=== PATIENT | female | born 1980 ===

== ENCOUNTER 2023-08-19 16:31 | Emergency (ER) | payer BC, SELFPAY ==
--- NOTE | 2023-08-19 16:36 | CRLHL7_ITS ---
For Patients: As a result of the Century Cures Act, medical imaging exams and procedure reports are released immediately into your electronic medical record. You may view this report before your referring provider. If you have questions, please contact your health care provider. INDICATION: Trauma. TECHNIQUE: Left elbow radiographs, 3 views. COMPARISON: None. FINDINGS: Acute comminuted displaced fracture of the radial neck, with a small joint effusion. There may be cortical regularity of the olecranon as well, suggestive of a minimally displaced fracture. No significant soft tissue edema or radiopaque foreign bodies. IMPRESSION: Findings compatible with and acute markedly comminuted fracture of the left radial neck with a small joint effusion. There is suspicion of a subtle, minimally displaced fracture of the olecranon as well. Dictated by Ugo Tena MD @ 08/19/2023 6:13:12 PM (Electronically Signed)
[2023-08-19 16:41] VITALS: BP 122/82; PULSE 74; RESP 22; TEMP 35.8; O2SAT 98
[2023-08-19] MEDS: ONDANSETRON ODT 4 MG TAB PO (16:51)
[2023-08-19] MEDS: OXYCODONE 5 MG TABLET PO (16:51)
--- NOTE | 2023-08-19 16:51 | ED_ITS ---
HPI - Extremity Injury (Upper) General Date Seen: 08/19/23 Chief Complaint: Extremity Pain/Injury, Upper Stated Complaint: left arm fell might be broken Time Seen by Provider: 08/19/23 16:39 Source: patient Mode of arrival: ambulatory Limitations: no limitations History of Present Illness HPI narrative: Patient is a 42 female presenting for left elbow pain. She states shortly prior to arrival she tripped over her feet states she landed on her knees and left elbow. She states she heard a crack and was immediately in severe pain to the left elbow. Denies ever hurting this elbow before. States she has pain to the elbow when she moves her fingers but denies any numbness at this time. Does states her right knee hurts mildly but just over the abrasions that occurred and she has been to walk on it without issue. Denies shoulder pain. States she knows for a fact that she did not hit her head. Related Data Home Medications Medication Instructions Recorded Confirmed dextroamphetamine-amphetamine 10 1 tab PO BID 08/19/23 08/19/23 mg tablet dextroamphetamine-amphetamine 20 0.5 tab PO BID 08/19/23 08/19/23 mg tablet Allergies Allergy/AdvReac Type Severity Reaction Status Date / Time No Known Drug Allergies Allergy Verified 08/19/23 16:40 Review of Systems Narrative: Negative unless stated in HPI PFSH PFSH Social History Smoking Status: Never smoker Do you use any of these nicotine containing products: None Second hand tobacco smoke exposure: No How often do you have a drink containing alcohol: never How often do you have six or more drinks on one occasion: Never AUDIT-C Alcohol total score: 0 Non-prescribed substance use: denies use service: No Exam Narrative: Exam Narrative: Const: Well-nourished, Well-developed, in moderate distress Eyes: PERRL, no conjunctival injection, and symmetrical lids HENT: Atraumatic external nose and ears. Moist mucous membranes. Neck: Symmetric, trachea midline, No thyromegaly. CVS: RRR, No murmurs or gallops. Peripheral pulses 2+ and equal in all extremities RESP: Unlabored respiratory effort. Clear to auscultation bilaterally. GI: Nontender/Nondistended, No rebound or guarding. MSK: Tenderness to palpation of left elbow, no tenderness noted anywhere else. Skin: Warm, Dry. No rashes or lesions. Neuro: Normal Muscle tone, No focal neurological deficits. Psych: Awake, Alert, & Oriented x3. Appropriate mood and affect. Const: Vital Signs, click to edit/add: Vital Signs - 24 hr 08/19/23 16:41 Temperature 96.5 F L Pulse Rate [Pulse Oximeter] 74 Respiratory Rate 22 Blood Pressure [Ri ght Upper Arm] 122/82 Pulse Oximetry 98 Oxygen Delivery Me thod Room Air Course Vital Signs Vital signs: Initial Vital Signs Temperature 96.5 F L 08/19/23 16:41 Temperature Source Temporal Artery Scan 08/19/23 16:41 Pulse Rate 74 08/19/23 16:41 Respiratory Rate 22 08/19/23 16:41 Blood Pressure 122/82 08/19/23 16:41 Blood Pressure Mean 95 08/19/23 16:41 Blood Pressure Position Sitting 08/19/23 16:41 Pulse Oximetry 98 08/19/23 16:41 Oxygen Delivery Method Room Air 08/19/23 16:41 Vital Signs Temperature 96.5 F L 08/19/23 16:41 Pulse Rate 74 08/19/23 16:41 Respiratory Rate 22 08/19/23 16:41 Blood Pressure 122/82 08/19/23 16:41 Pulse Oximetry 98 08/19/23 16:41 Oxygen Delivery Method Room Air 08/19/23 16:41 Temperature 96.5 F L 08/19/23 16:41 Pulse Rate 74 08/19/23 16:41 Respiratory Rate 22 08/19/23 16:41 Blood Pressure 122/82 08/19/23 16:41 Pulse Oximetry 98 08/19/23 16:41 Oxygen Delivery Method Room Air 08/19/23 16:41 Medications Administered Medications: Discontinued Medications Generic Name Dose Route Start Last Admin Trade Name Freq PRN Reason Stop Dose Admin Ondansetron HCl 4 mg 08/19/23 16:39 08/19/23 16:51 Ondansetron Odt 4 Mg Tab PO 08/19/23 16:40 4 mg ONCE ONE Administration Oxycodone HCl 5 mg 08/19/23 16:39 08/19/23 16:51 Oxycodone 5 Mg Tablet PO 08/19/23 16:40 5 mg ONCE ONE Administration MDM - Extremity Injury (Upper) MDM Narrative Medical decision making narrative: Patient is a 42-year-old female presenting for left elbow pain. Most of the tenderness was to the left elbow and on digits mild pain she was and it was difficult to say if she had any wrist or shoulder pain. Patient appeared diaphoretic and felt like she was going to pass out because the pain that she was quickly brought back to a huynh bed. She was given oral oxycodone and Zofran. X-rays of the left elbow, wrist, forearm were ordered. They were able to do the elbow x-rays but due to her level of pain they were unable to get the wrist and forearm x-rays. This seems reasonable at this time considering all of her pain appears to to now be at the elbow after she received pain medicine. X- rays returned showing the radial head fracture and a possible fracture of the olecranon. Patient is placed in a long-arm splint and a arm sling. She tolerated the procedure well. She will be discharged with Toradol, Zofran, oxycodone through [facility]. She continues to be neurovascular intact. She is scheduled for an outpatient orthopedics appointment. She is agreeable to this plan. Imaging Data Elbow x-ray: Radiologist's impression: Findings compatible with and acute markedly comminuted fracture of the left radial neck with a small joint effusion. There is suspicion of a subtle, minimally displaced fracture of the olecranon as well. Dictated by Ugo Tena MD @ 08/19/2023 6:13:12 PM Discharge Plan Discharge Clinical Impression: Elbow fracture, left Qualifiers: Encounter type: initial encounter Fracture type: closed Qualified Code(s): S42.402A - Unspecified fracture of lower end of left humerus, initial encounter for closed fracture Patient Disposition: Home, Self-Care Condition: Improved Instructions: Elbow Fracture (DC) Additional Instructions: Follow-up with orthopedics about your elbow fracture. ([phone]). Do not use ibuprofen or naproxen at the same time your taking the Toradol. No showering your left arm unless your able to cover the splint with a plastic bag. Return to emergency department for any new or worsening symptoms Prescriptions: No Action dextroamphetamine-amphetamine 10 mg tablet 1 tab PO BID dextroamphetamine-amphetamine 20 mg tablet 0.5 tab PO BID Follow Up/Referrals: Asia Bruno MD [Primary Care Provider] - Stand Alone Forms: SurgiCount Medical Info Instructions
== END 2023-08-19 18:41 | disposition home or self-care (01) ==
PROVIDERS: Emergency Provider Student in an Organized Health Care Education/Training Program; PCP Family Medicine
DX: S42.402A Unspecified fracture of lower end of left humerus, initial encounter for closed fracture (principal); W01.0XXA Fall on same level from slipping, tripping and stumbling without subsequent striking against object, initial encounter
CPT/HCPCS: 29105; 73080; 99282; 99283; A9270

== ENCOUNTER 2023-08-27 10:09 | Outpatient (CLI) | payer BC, SELFPAY ==
--- NOTE | 2023-08-27 10:00 | CRLHL7_ITS ---
For Patients: As a result of the Century Cures Act, medical imaging exams and procedure reports are released immediately into your electronic medical record. You may view this report before your referring provider. If you have questions, please contact your health care provider. Indication: FRACTURE Technique: Noncontrast CT left elbow Please note that all CT scans at this facility use dose modulation, iterative reconstruction, and/or weight-based dosing when appropriate to reduce radiation dose to as low as reasonably achievable. Comparison: Plain films 08/19/2023 Findings: There is a comminuted and displaced fracture of the radial neck. Fracture does not extend to the joint space. Angulation of the radial head noted, however, related to the fractures such that there is widening between the anterior aspect of the radial head and the capitellum. Chip fracture at the coronoid process noted. There is also a small fracture deformity adjacent to the medial humeral epicondyle. Joint effusion is present with displacement of the anterior and posterior fat pads. Subcutaneous edema noted. Impression: Displaced and comminuted radial neck fracture with mild angulation of the radial head such that there is widening at the radial capitellar joint along with a small intra-articular loose body. Additional fractures at the coronoid process and medial humeral epicondyle. Please note that all CT scans at this facility use dose modulation, iterative reconstruction, and/or weight-based dosing when appropriate to reduce radiation dose to as low as reasonably achievable. Dictated by Jaime Hurd MD @ 08/27/2023 11:19:01 AM (Electronically Signed)
== END 2023-08-27 10:10 | disposition home or self-care (01) ==
LOC: CT 10:10
PROVIDERS: PCP Physician Assistant Medical; Visit Provider Orthopaedic Surgery Sports Medicine
DX: S42.402A Unspecified fracture of lower end of left humerus, initial encounter for closed fracture (principal)
CPT/HCPCS: 73200

== ENCOUNTER 2023-08-30 11:18 | Day surgery (SDC) | payer BC, SELFPAY ==
[2023-08-30] MEDS: LACTATED RINGERS 1000 ML 1,000 ML 100 ML IV (11:10)
[2023-08-30 11:38] VITALS: BMI 34.8
[2023-08-30 11:54] LABS: Ur HCG Qualitative* Negative (Negative)
[2023-08-30 11:57] VITALS: BP 119/76; PULSE 79; RESP 18; TEMP 36.3; O2SAT 95
[2023-08-30] MEDS: SODIUM CHLORIDE 0.9 % (FLUSH) 10 ML SYRINGE IVF (12:06)
[2023-08-30 13:03] VITALS: BP 94/70; PULSE 77; RESP 18; O2SAT 98
[2023-08-30] MEDS: MIDAZOLAM HCL 1 MG/ML inj IVP (13:05)
[2023-08-30] MEDS: fentaNYL 100 MCG/2 ML inj IVP (13:05)
--- NOTE | 2023-08-30 13:06 | SUR.PREOP ---
TIME?OUT:?1305 PT/kristel duckworth RN/lauren moreno MDA?VERIFICATION?OF?SURGICAL?SITE,?PROCEDURE,?AND?CONSENT OBTAINED?PRIOR?TO?INVASIVE?PROCEDURE.
[2023-08-30 13:10] VITALS: BP 119/71; PULSE 77; RESP 18; O2SAT 96
--- NOTE | 2023-08-30 13:16 | W.PM.H&PU ---
History & Physical Update History & Physical Update H&P Reviewed and patient assessed: No changes noted
--- NOTE | 2023-08-30 13:30 | CRLHL7_ITS ---
For Patients: As a result of the Century Cures Act, medical imaging exams and procedure reports are released immediately into your electronic medical record. You may view this report before your referring provider. If you have questions, please contact your health care provider. INDICATION: Open reduction/internal fixation of the left elbow/radial head. TECHNIQUE: Fluoroscopically guided open reduction and internal fixation of the left elbow. FINDINGS: Four spot images of the left elbow were performed intraoperatively. Postsurgical change from open reduction and internal fixation across the left proximal radius. 22.4 seconds fluoroscopy time utilized. IMPRESSION: 22.4 seconds fluoroscopy time utilized intraoperatively. Dictated by Giovanny Mullins MD @ 08/30/2023 6:18:10 PM (Electronically Signed)
--- NOTE | 2023-08-30 13:30 | P.NB_ITS ---
Nerve Block Nerve Block Time Seen by Provider: 13:10 Date Seen: 08/30/23 Type of block requested by surgeon for post-operative analgesia: axillary Side: left Time out performed: Yes Verification of patient name: Yes Verification of date of : Yes Site marking: site marked Name of person performing procedure: Rashaad Continuous monitoring Was continuous monitoring of O2 sat, B/P, nuclear monitoring technician, recorded every 15 minutes?: Yes Procedure Checklist: sterile prep, needles and gloves Ultrasound guided. Images saved: Yes Medications given in 5ml increments after negative aspiration: Ropivicaine %: 0.5 mL: 30 Needle gauge: 22 Patient tolerated procedure well: Yes Additional comments: Needle noted adjacent to nerve Block Charges Block Charge (with Pro Fee): Brachial Plexus Use of Ultrasound Machine for Block: Yes- US Guidance/pain block
--- NOTE | 2023-08-30 13:31 | W.ANESCHARGE ---
Anesthesia Charges Start Date/Time Anesthesia Start Date: 08/30/23 Anesthesia Start Time: 13:24 Stop Date/Time Anesthesia Stop Date: 08/30/23 Anesthesia Stop Time: 15:59
[2023-08-30] MEDS: CEFAZOLIN 2 GM in 0.9 % SODIUM CHLORIDE Mini-bag 100 ML IVPB (13:42)
--- NOTE | 2023-08-30 15:35 | PM.ORPRC ---
Procedure Note Date of procedure: 08/30/23 Procedure: PREOPERATIVE DIAGNOSES: 1. Left radial neck fracture, displaced, comminuted, intra-articular extension, acute, closed 2. Left coronoid fracture, mildly displaced 3. Left distal humerus medial epicondylar avulsion fracture POSTOPERATIVE DIAGNOSES: 1. Left radial head/neck fracture, displaced, comminuted, intra-articular extension, acute, closed 2. Left coronoid fracture, mildly displaced 3. Left distal humerus medial epicondylar avulsion fracture NAME OF OPERATION: 1. Left radial head/neck open reduction with internal fixation 2. Closed treatment of a left coronoid fracture 3. Closed treatment of a left distal humerus medial epicondylar avulsion fracture 4. [id number] - intraoperative fluoroscopy up to 1 hour. SURGEON: Ayo Wagner MD CUTLET MAKER PORK: Yao De La O PA-C - Of note, an business banking sales assistant was critical for this case to aide in patient positioning, limb manipulation, tissue retraction, closure, and splinting. ANESTHESIA: Regional block plus MAC anesthetic IMPLANTS: Acumed radial head plate with multiple locking and a single nonlocking screw. TOURNIQUET: 97 minutes at 230 torr INDICATIONS: The patient is a pleasant, 42-year-old female who sustained a left radial head/neck fracture after a fall from a standing height. They had difficulty with use of the extremity and deformity as well as a mechanical block to range of motion. Workup included xrays which revealed an unstable, displaced, comminuted fracture. A CT scan was obtained and confirmed the comminuted fracture pattern but also intra-articular extension. There is also a small fracture of the coronoid process and the medial humeral epicondyle Given these findings, surgery was recommended to stablize the fracture. FINDINGS: Closed, comminuted proximal radial head/neck fracture. The radial head was primarily 1 fragment, but there is tremendous comminution through the radial neck fracture component. We also did appreciate the intra-articular extension which was a bit more anterior at least based on the rotation of the radius during the procedure. The radial head was also translated anteriorly relative to the shaft. PROCEDURE: Following a thorough discussion of risks, benefits, and alternatives, consent was obtained and the operative extremity was marked. The patient was brought to the operating room and placed supine on the operating table. Induction of anesthesia was achieved. Appropriate time out was performed identifying proper patient, site and procedure. 2 g IV Ancef was administered within 1 hour of incision preoperatively. The left upper extremity was prepped and draped in the appropriate sterile fashion using ChloraPrep. The limb was exsanguinated and the tourniquet inflated. A oblique/longitudinal incision was made overlying lateral aspect of the right elbow. Sharp incision through skin and subcutaneous tissue allowed identification of the common extensor origin region. Extensor split was utilized for the deep dissection. This was in line between the Seferino's tubercle and lateral humeral epicondyle. This was sharply divided with the forearm in a pronated state to help move the PIN away from the operative field. The annular ligament was incised along with the radial collateral ligament. The lateral ulnar collateral ligament was protected. After the arthrotomy, a hemarthrosis was immediately encountered and evacuated. The fracture piece was indeed displaced proximally and anteriorly. We were able to identify this fragment and debrided of fibrous tissue and the hematoma. Better evaluation showed other small comminuted chondral fragments as well. As he has had no significant structure or bone attachment, they had to be excised. However, majority the fragment was a combination cartilage and bone and was amenable to fixation. At this stage, the fracture was reapproximated and temporally held with K-wires and drilled bits placed through the Acumed proximal radius/radial head plate. C-arm fluoroscopic imaging was used to confirm the improved position and appropriate alignment. 4 proximal locking screws were placed in both a convergent and divergent fashion based on the plate design. Then, distal nonlocking and locking screws were drilled, measured, and placed. The elbow was placed through range of motion with flexion extension as well as forearm pronation supination. No mechanical block nor crepitus could be appreciated. Therefore, the elbow was thoroughly irrigated normal saline, closure performed with 0 Vicryl for the annular ligament/radial collateral ligament. 2-0 Vicryl for the extensor fascia reapproximation and subcutaneous closure. 4-0 Monocryl for subcuticular closure followed by a long-arm splint after dressings applied and tourniquet deflated. Patient was woken from anesthesia and transferred the PACU in stable condition. PLAN: 1. Elevate operative extremity. 2. Ice, acetominphen or ibuprofen PRN. 3. Tramadol for pain as needed. 4. She may discontinue the splint in 2 days. Sling for support thereafter. Gentle elbow range of motion based on pain. PA visit 7-10 days for wound check and splint removal. If it does not, then gentle range of motion with extreme caution for the patient to avoid load bearing activities. 5. Strongly encourage smoking cessation.
[2023-08-30 15:56] VITALS: BP 104/68; PULSE 70; RESP 16; TEMP 36.3; O2SAT 94
[2023-08-30 16:00] VITALS: BP 104/66; PULSE 74; RESP 16; O2SAT 94
--- NOTE | 2023-08-30 16:02 | W.ANESCHARGE ---
Anesthesia Charges Start Date/Time Anesthesia Start Date: 08/30/23 Anesthesia Start Time: 13:24 Stop Date/Time Anesthesia Stop Date: 08/30/23 Anesthesia Stop Time: 15:59
[2023-08-30 16:15] VITALS: BP 107/70; PULSE 72; RESP 16; TEMP 36.6; O2SAT 95
== END 2023-08-30 16:39 | disposition home or self-care (01) ==
PROVIDERS: PCP Physician Assistant Medical; Visit Provider Orthopaedic Surgery Sports Medicine
PROC: (CPT 25575; principal; 2023-08-30 13:30)
DX: S52.132A Displaced fracture of neck of left radius, initial encounter for closed fracture (principal); S52.042A Displaced fracture of coronoid process of left ulna, initial encounter for closed fracture; S42.442A Displaced fracture (avulsion) of medial epicondyle of left humerus, initial encounter for closed fracture; W18.30XA Fall on same level, unspecified, initial encounter; G89.18 Other acute postprocedural pain
CPT/HCPCS: 24665; 24675; 24565; 01830; 64415; 73080; 76000; 76942; 81025; A4580; C1713; J0690; J1100; J2250; J2405; J2704; J2795; J3010; J7120

== ENCOUNTER 2023-11-11 07:30 | Outpatient (RCR) | payer BC, SELFPAY ==
--- NOTE | 2023-09-15 18:37 | OT.OPOE ---
OT Outpatient Ortho Eval OT Outpatient Ortho Eval* Start: 09/14/23 18:19 Freq: Status: Active Protocol: Document 09/15/23 14:53 AMB (Rec: 09/15/23 18:11 AMB [id number]) E-signed By Polly Underwood, OTR/L, CLT, [employer] OT OP Ortho Eval Details Complexity Complexity Low Insurance Information Insurance Information Medicaid Other Insurance BCBS Outpatient History/Precautions Current Condition/Medical Diagnosis Referring Provider Yao De La O Treatment Diagnosis LUE radial head/neck fx with ORIF, pain, limited ROM and weakness in LUE Date of Onset DOI: 08/19/23, DOS: 08/30/23 Precautions Lifting Restrictions Other Precautions Pt can do gentle AROM LUE hand , wrist, forearm, elbow and shoulder, no strengthening or aggressive ROM. Lifting no more than the weight of an apple. Sling for comfort. Other Conditions Closed treatment of left coronoid fracture, closed treatment left distal humerus medial epicondylar avulsion fracture same time of radial head/neck fx Medical/Functional History Medical History Reviewed Yes Prior Level of Function/Mobility PMH relatively unremarkable. Pt does smoke and is aware that this could impair healing . PSH includes a , exploratory lap. 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 Pt underwent surgery on 08/30/23, feels she is doing ok. 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 Pt states she's been having increased pain in her LUE today, working [employer] and had to do a delivery that included 2 bags of softener salt, states she didn't do any lifting with her left arm but still it got sore. Pt states she really hasn't been using anything for pain, doesn't like to take meds. Pt rates her average pain at 2/10, described as aching. Pt states her shoulder and neck have been quite stiff as well. Pt has occasional tingling in her fingers but does not last. Pain Assessment Pain Present Pain Present Pain Reported Goniometric Comments Goniometric Comments Goniometric Comments 09/15/23 AROM of the LUE shoulder, wrist and hand is WNL. AROM of the LUE forearm supination is 50, supination is 10. AROM of the LUE elbow is -55 extension to 95 deg of flexion. OT Objective Data Hand Hand Dominance Right Observations/Posture/Limb Appearance Objective Observations 09/15/23 Pt demonstrates forward head and rounded shoulders, slightly guarded posture. Skin/Wounds/Edema Comments 09/15/23 Incisional area is closed, still has surgical glue covering, no s/s of infection. OT Problems Problems Problems Decreased Strength,Decreased Range of Motion,Pain,Decreased Coordination,Lifting,Gripping ,Pinching Other Problems Opening Containers,Dressing, Computer,Fasteners,Sleeping Patient Potential Good Assessment Assessment Assessment Pt is a very pleasant 42yo female s/p 2 weeks and 2 days LUE radial head/neck fx with ORIF and closed treatment of left coronoid fracture, closed treatment left distal humerus medial epicondylar avulsion fracture presenting with significant limitations in AROM of the LUE elbow and forearm. Pt also has mild swelling at the elbow and forearm. Pt has strict lifting restrictions of no more than the weight of an apple and no pushing ROM. Sling prn. Due to limited ROM, weakness, and pain as well as surgical restrictions, pt has difficulty with all activities that require lifting, gripping, carrying, holding which includes personal cares, care of her daughter and her [employer] job. Pt will benefit from skilled OT intervention to address limitations and restore full, pain-free use of her LURE. Occupational Therapy Treatment Plan - OP Potential Rehabilitation Potential Good Set Goals Goals Set with Patient Yes Goals Goals 1. Pt will be independent and compliant with HEP in order to resume full, pain-free use of the involved UE. 3 weeks 2. Pt will demonstrate full, pain-free AROM of the involved UE in order to improve ability to grasp and hold. 6 weeks 3. 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 8 weeks. Target Date 12/15/23 Treatment Plan Treatment Plan Evaluation,Edema Control,Joint Mobilization,Manual Therapy, Splinting,Wound Care/Scar Management,Therapeutic Exercise,Therapeutic Activities,Self Care/Home Management,Education Expected Frequency 1-2x Week Expected Duration 12 weeks Home Program Home Program Home Program Initiated Home Program Specifics 09/15/23 Provided training and practice in HEP for gentle AROM of the LUE hand, wrist, forearm, elbow and shoulder. Following demo, pt is able to complete exs with minimal cues and encouragement. Pt was provided with written instructions for exs for use at home as well. Recertification Information Recertification Information Initial Certification Date 09/15/23 Recertification Due Date 12/14/23 Reasons to Continue Skilled Therapy Initiated OT to address pain, weakness and limited AROM in the LUE secondary to LUE radial head/neck fx with ORIF and closed treatment of left coronoid fracture, closed treatment left distal humerus medial epicondylar avulsion fracture Rehabilitation Potential Good Click To Default 'Per treatment plan' Per treatment plan Continued Plan of Care and Interventions Per treatment plan Provider Signature Shows Agreement With POC & Medical Necessity Physician Comment/Change Comment or Changes Physician NPI Number #
== END 2024-03-10 23:59 | disposition home or self-care (01) ==
PROVIDERS: PCP Physician Assistant Medical; Visit Provider Physician Assistant Surgical
DX: Z98.890 Other specified postprocedural states (principal); Z51.89 Encounter for other specified aftercare
CPT/HCPCS: 97035; 97110; 97140; 97165; X5282

== ENCOUNTER 2024-03-25 20:55 | Emergency (ER) | payer BC, SELFPAY ==
--- NOTE | 2024-03-25 21:49 | ED.GENADULT ---
HPI - General Adult General Chief complaint: Animal Bite Stated complaint: Engorged tick on back Time Seen by Provider: 03/25/24 21:42 History of Present Illness HPI narrative: Patient is a 43-year-old woman who was able scrape what appeared to be a deer tick off of her back earlier tonight. She does certain how long the tick was air but potentially 48 hours. She has only local irritation at the tick bite which is to the left of the midline. She feels like she has been exposed to Lyme as she was recently vacationing in [place]. She is otherwise up-to-date on her tetanus shot and is otherwise in good health no other significant symptoms. Related Data Home Medications ?Medication ?Instructions ?Recorded ?Confirmed dextroamphetamine-amphetamine 10 1 tab PO BID 08/19/23 11/09/23 mg tablet dextroamphetamine-amphetamine 20 0.5 tab PO BID 08/19/23 11/09/23 mg tablet Allergies Allergy/AdvReac Type Severity Reaction Status Date / Time No Known Drug Allergies Allergy Unverified 11/09/23 08:18 Review of Systems Status of ROS: Reports: 10 or more systems reviewed and unremarkable except as noted in History and below [facility] Medical History Urinary tract infection ?N39.0 - Urinary tract infection, site not specified (ICD-10) Rupture of cyst of right ovary ?N83.201 - Unspecified ovarian cyst, right side (ICD-10) Rash ?R21 - Rash and other nonspecific skin eruption (ICD-10) -induced hypertension (05/27/11) ?O13.9 - Gestational [-induced] hypertension without significant proteinuria, unspecified trimester (ICD-10) Postoperative abdominal pain ?R10.9 - Unspecified abdominal pain (ICD-10) ?G89.18 - Other acute postprocedural pain (ICD-10) Polycystic ovary syndrome (05/27/11) ?E28.2 - Polycystic ovarian syndrome (ICD-10) Menorrhagia ?N92.0 - Excessive and frequent menstruation with regular cycle (ICD-10) Laceration Infection due to severe acute respiratory syndrome coronavirus 2 (SARS-CoV-2) ?U07.1 - COVID-19 (ICD-10) Headache ?R51.9 - Headache, unspecified (ICD-10) Cysts of both ovaries ?N83.201 - Unspecified ovarian cyst, right side (ICD-10) ?N83.202 - Unspecified ovarian cyst, left side (ICD-10) Cyst of ovary ?N83.209 - Unspecified ovarian cyst, unspecified side (ICD-10) Abdominal pain ?R10.9 - Unspecified abdominal pain (ICD-10) Torsion of ovary ?N83.519 - Torsion of ovary and ovarian pedicle, unspecified side (ICD-10) History of abnormal cervical Papanicolaou smear (2002) ?Z87.42 - Personal history of other diseases of the female genital tract (ICD-10) Hemorrhage of corpus luteum cyst ?N83.10 - Corpus luteum cyst of ovary, unspecified side (ICD-10) Polycystic ovaries ?E28.2 - Polycystic ovarian syndrome (ICD-10) ANI II (cervical intraepithelial neoplasia II) ?N87.1 - Moderate cervical dysplasia (ICD-10) ADHD ?F90.9 - Attention-deficit hyperactivity disorder, unspecified type (ICD-10) Surgical History History of open reduction and internal fixation (ORIF) procedure (08/30/23) ?Z98.890 - Other specified postprocedural states (ICD-10) Status post laparoscopy ?Z98.890 - Other specified postprocedural states (ICD-10) H/O section ?Z98.891 - History of uterine scar from previous surgery (ICD-10) H/O exploratory laparotomy (2017) ?Z98.890 - Other specified postprocedural states (ICD-10) Social History Smoking Status: Current every day smoker What tobacco products do you use: cigarettes Do you use any of these nicotine containing products: None Second hand tobacco smoke exposure: No How often do you have a drink containing alcohol: monthly or less Alcohol type: beer How many standard drinks containing alcohol do you have on a typical day: 1 or 2 How often do you have six or more drinks on one occasion: Never AUDIT-C Alcohol total score: 1 Non-prescribed substance use: denies use Caffeine: Yes Are you using contraception or practicing any form of control: No service: No Exam Narrative: Exam Narrative: EXAM GENERAL: Patient appears comfortable and well. EYES: No scleral icterus. LYMPH: No supraclavicular or cervical lymphadenopathy. SKIN: Slight erythema noted in the posterior thorax to the left of the midline as noted above. EXT: No dependent lower extremity pedal edema. HEART: Regular rate and rhythm with no murmurs, rubs, or gallops. LUNGS: Clear to auscultation bilaterally with no crackles or wheezes. ABD: Soft, non tender, non distended. PSYCH: Good eye contact, speech is not pressured. Medical Decision Making MDM Narrative Medical decision making narrative: Patient presents with likely deer tick exposure from an endemic area consistent with Lyme exposure. She has no erythema migrans and no signs of systemic illness. I do think it 1 time prophylactic dose of 200 mg of doxycycline is reasonable as reviewed on up-to-date. Will provide this and otherwise provide supportive care. Discharge Plan Discharge Clinical Impression: Risk of exposure to Lyme disease Patient Disposition: Home, Self-Care Condition: Stable Additional Instructions: Keep wound clean Report any change in symptoms Up with your doctor as needed. Activity Level: No Restrictions Discharge Diet: Regular Prescriptions: No Action dextroamphetamine-amphetamine 10 mg tablet 1 tab PO BID dextroamphetamine-amphetamine 20 mg tablet 0.5 tab PO BID Follow Up/Referrals: Awa Barajas PA-C [Primary Care Provider] - Stand Alone Forms: [employer] Info Instructions
[2024-03-25] MEDS: DOXYCYCLINE HYCLATE 100 MG 200 MG PO (21:52)
--- OUTSIDE RECORDS SUMMARY | 2024-03-25 22:05 | XMS_ITS | Clinical Summary ---
Author Organization [employer] [facility] [employer] [facility] Address [place], [place] [address] Care Team Providers Care Escalator Attendant Name Role Phone Pawel Guillermo MD Unavailable [phone] [place], [place] Unavailable Unavailable Awa Barajas Primary Care Provider Allergies No known active allergies Medications Medication Sig Dispensed Refills Start Date End Date Status dextroamphetamine-am phetamine (AdderalL) 10 mg tabletIndications:At tention deficit hyperactivity disorder (ADHD), unspecified ADHD type Take 1 Tablet (10 mg) by mouth two times daily. 60 Tablet 02/15/2024 Active dextroamphetamine-am phetamine (AdderalL) 10 mg tabletIndications:At tention deficit hyperactivity disorder (ADHD), unspecified ADHD type Take 1 Tablet (10 mg) by mouth two times daily. 60 Tablet 03/15/2024 04/14/2024 Active dextroamphetamine-am phetamine (AdderalL) 10 mg tabletIndications:At tention deficit hyperactivity disorder (ADHD), unspecified ADHD type Take 1 Tablet (10 mg) by mouth two times daily. 60 Tablet 04/14/2024 05/14/2024 Active dextroamphetamine-am phetamine (AdderalL) 10 mg tabletIndications:At tention deficit hyperactivity disorder (ADHD), unspecified ADHD type Take 1 Tablet (10 mg) by mouth two times daily. 60 Tablet 05/14/2024 Active dextroamphetamine-am phetamine (ADDERALL) 10 mg tabletIndications:At tention deficit hyperactivity disorder (ADHD), predominantly inattentive type TAKE ONE TABLET(10MG) BY MOUTH TWICE A DAY 60 Tablet 04/20/2023 03/15/2024 Discontinued (*Medication adjustment) dextroamphetamine-am phetamine (AdderalL) 10 mg tabletIndications:At tention deficit hyperactivity disorder (ADHD), predominantly inattentive type Take 1 Tablet (10 mg) by mouth two times daily. 60 Tablet 08/17/2023 03/15/2024 Discontinued (*Medication adjustment) dextroamphetamine-am phetamine (AdderalL) 10 mg tabletIndications:At tention deficit hyperactivity disorder (ADHD), unspecified ADHD type Take 1 Tablet (10 mg) by mouth two times daily. 60 Tablet 12/17/2023 03/15/2024 Discontinued (*Medication adjustment) Active Problems Problem Noted Date Diagnosed Date ANI II (cervical intraepithelial neoplasia II) 0 11/06/2022 Overview: 10/30/02 LEEP ANI I-II 10/2022 NIL/HPV negative Plan: Pap/HPV due 10/2025 ADHD (attention deficit hyperactivity disorder) 04/27/2013 Polycystic ovaries 05/22/2006 Resolved Problems Problem Noted Date Diagnosed Date Resolved Date delivery delivered 02/21/2012 09/14/2022 premature rupture of membranes 02/20/2012 09/14/2022 Term 02/20/2012 09/14/2022 Spina bifida without hydroce phalus, , affecting mother, antepart 10/23/2011 09/14/2022 Supervision of other high-ri (V23.89) 07/21/2011 09/14/2022 Overview: NEXT VISIT ALERTS: C/S changed to 02/24 9:30 a.m. 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 History of REFERRING PHYSICIAN: SPECIALISTS: TRANSACTION PROCESSOR: Belinda Heaton [phone] CARE COORDINATION:Brenna Pineda,RN Ana Bowens, ALEJANDRO CONSULTS: 11/10 went to [facility] for evaluation of surgery 12/06 DANIELA 12/06 Tour of labor and delivery at 1045 [place] consult 02/04 @ [address] Britt Ludwig consult 02/04 @ [address] Ludwig PROCEDURES: 10/28 amniocentesis 46 XX MEDS: Vitamin D plans: Pertinent/Abnormal LABS: Blood type: B positive -GCT 87 GBS - Negative - 02/05/12 NURSING: Flu vaccine given Non BMI 24 Optimal wt gain 25-35lb Planning/Not planning Tubal Ligation Is Medical assistance GENETICS: Date: 10/23 Counselor:Claudia Ortiz Plan: 10/28 amniocentesis 46XX PLAN OF CARE: 02/05/2012- Weekly BPP's/NST's Repeat C/S scheduled for 02/22/12 @ 1200 CHECKLIST FOR SCHEDULING PROCEDURES: Procedure: C/BIRTH_X__ Unit: L&D__X__ MD doing procedure: Date & Time of procedure: 02/25/2012 9:30 a.m. Does NICU need notification? yes Done? 02/04 MD notified if early case? NA Date scheduled: 02/04 Scheduling MD: Gestational age on procedure date? 39w 5d Amnio needed? NO Amnio scheduled? NO On [facility] calendar? Yes PPTL permit signed? NO H&P done? NO Patient notified of procedure date? Written admission instructions given to patient? Previous section 07/21/2011 Mild or unspecified pre-eclampsia, antepartum 05/22/20 06 09/14/2022 Overview: with Encounters Date Type Department Care Team Description 03/15/2024 Refill [facility] [address] [place] [address] Awa Barajas PA Refill Request (Dextroamphetamine-amphe tamine) from Last 3 Months Immunizations Name Administration Dates Next Due DT (Age < 7 years) 09/13/1996 Influenza, IIV3 (Age 6-35 mos) 06/20/2004 Influenza, IIV3 (Age >=3 years) 06/20/2004 Td, Preservative Free (age >= 7 Years) 8 Tdap 04/24/2008 Family History Medical History Relation Name Comments Allergies Daughter 2 Asthma Daughter 3 Good Health Father Unknown Maternal Grandfather Diabetes Maternal Grandmother Cancer-breast Mother BRCA TESTS NOT BACK DUCTAL Good Health Mother Cancer-breast Paternal Aunt Cancer Paternal Grandfather liver c ancer Diabetes Paternal Grandmother Good Health Sister 2 Relation Name Status Comments Daughter 1 Alive Daughter 2 Daughter 3 Father Alive Maternal Grandfather Alive Maternal Grandmother Alive Mother Alive Paternal Aunt Paternal Grandfather Alive Paternal Grandmother Alive Sister 1 Alive Sister 2 Social History Tobacco Use Types Packs/Day Years Used Date Smoking Tobacco: Some Days Cigarettes 0.3 10 Smokeless Tobacco: Never Tobacco Cessation:Ready to Q uit: No; Counseling Given: Yes Alcohol Use Standard Drinks/Week Comments Yes 0 (1 standard drink = 0.6 oz pur e alcohol) PHQ-2 Answer Date Recorded PHQ-2 Score 2 07/19/2019 Social Connections Answer Date Recorded Frequency of Communication with Friends and Fami ly Not on file 10/29/2023 Financial Resource Strain Answer Date R ecorded Difficulty of Paying Living Expenses 3 10/19/2022 Difficulty of Paying Living Expenses Not on file 10/19/2022 Food Insecurity Answer Date Recorded Worried About Running Out of Food in the Last Ye ar 1 10/19/2022 Transportation Needs Answer Date Record ed Lack of Transportation (Medical) 1 10/19/2022 Housing Stability Answer Date Recorded Unable to Pay for Housing in the Last Year 1 10/19/2022 Sex and Gender Information Value Date Recorded Sex Assigned at Not on file Gender Identity Not on file Sexual Orientation Not on file Obstetrics History Para Term AB IAB SAB Ectopic Multiple Livin g Live Births 2 2 2 2 1 Date Outcome GA Total Labor Labor/2nd/3rd Weight Sex Type Anes PTL Celina A1 A5 Name Clin 004 Term 40w 0d 8h 00m/ 4.08 kg (9 lb) F C-Sec tion Kendall Comments:pre eclampsia 012 Term 39w 1d F C-Sec tion Livin g 9 9 FOSTER BG Delivery Location:[facility] Last Filed Vital Signs Vital Sign Reading Time Taken Comments Blood Pressure 120/86 08/25/2023 9:05 AM TENTERING [employer]ACHINE [employer] Pulse 99 08/25/2023 9:05 AM [employer]ENTERING [employer]ACH[employer] Temperature 36.8 ??C (98.2 ??F) 07/19/2019 1:57 PM CS T Respiratory Rate 16 02/23/2012 7:53 AM CDT Oxygen Saturation 100% 08/25/2023 9:05 AM TENTERING MACHINE OFF [employer] Inhaled Oxygen Concentration - - Weight 104.3 kg (230 lb) 08/25/2023 9:05 AM [employer]ENTERING MACH[employer] OFF [employer] Height 173 cm (5' 8.11) 08/25/2023 9:05 AM [employer]ENTERING MACH[employer] OFF [employer] Body Mass Index 34.86 08/25/2023 9:05 AM TENTERING MACHINE OFF [employer] Plan of Treatment Health Maintenance Due Date Last Done Comments Pneumococcal series for age 6-64 (1 of 2 - PCV) 1985 Depression screening for age 12+ 07/19/2020 07/19/2019, 06/27/2018, 05/03/2017, Additional history exists COVID-19 vaccine series ( season) 2023 Influenza for age 9-49 05/14/2024 06/20/2004 BMI (ht and wt on same day) for age 18+ 08/25/2024 08/25/2023, 10/19/2022, 07/19/2019, Additional history exists Pap test for age 21-65 10/19/2025 , 10/19/2022, 10/19/2014, Additional history exists Tetanus booster 06/27/2028 06/27/2018, 04/24/2008 Tdap Completed 04/24/2008 HIV for age 15-65 Completed 10/19/2022, , 10/19/2014, Additional history exists Hepatitis C screening for ag e 18-79 Completed 10/19/2022, 05/20/2017, 10/19/2014, Additional history exists Procedures Procedure Name Priority Date/Time Associated Diagnosis Comments LC HIV-1/O/2, 4TH GENERATION Routine 10/19/2022 3:04 PM [employer] Screen for STD (sexually transmitted disease) LC HCV ANTIBODY RFX TO QUANT PCR Routine 10/19/2022 3:04 PM [employer]ING [employer] Screen for STD (sexually transmitted disease) HPV THIN PREP Routine 10/19/2022 2:42 PM [employer]ENTERING MACH[employer] Screening for cervical cancer from Last 3 Months or Most Recently Relevant to Health Maintenance Results * LC HCV ANTIBODY RFX TO QUANT PCR (10/19/2022 3:04 PM TENTERING MACHINE OFF BEARER) Pathologist [facility] HCV Ab 0.5 0.0 - 0.9 s/co ratio 10/21/2022 10:07 PM TENTERING MACHINE OFF [employer]ARER [facility] Blood BLOOD SPECIMEN / Unknown Venipuncture / Unknown 10/19/2022 3:04 PM TENTERING MACHINE OFF [employer]ER 10/19/2022 3:07 PM [employer]ENTERING MACH[employer] OFF [employer]ER Narrative [facility] - 10/21/2022 10:07 PM TENTERING MACH[employer] OFF [employer] Performed at: ??01 - [address] ??[id number] Case Checker: Job Guidry MD, Phone: ??[phone] [facility] Performing Organization Address City[facility] Co de Phone Number [facility] ([facility]) [address] [place] [address] * HIV-1/O/2, 4TH GENERATION (10/19/2022 3:04 PM TENTERING MACHINE OFF BEARER) [facility] HIV Scr 4th Gen Non Reactive Non Reactive 10/21/2022 10:07 PM TENTERING MACHINE OFF BEARER [facility] ([facility]) Comment: HIV Negative HIV-1/HIV-2 antibodies and HIV-1 p24 antigen were NOT detected. There is no laboratory evidence of HIV infection. Blood BLOOD SPECIMEN / Unknown Venipuncture / Unknown 10/19/2022 3:04 PM TENTERING MACHINE OFF [employer]ER 10/19/2022 3:07 PM TENTERING MACHINE OFF [employer]ARER Narrative [facility] ([facility]) - 10/21/2022 10:07 PM TENTERING MACHINE OFF [employer] Performed at: ??[address] ??[id number] Case Checker: Job Guidry MD, Phone: ??[phone] [facility] Performing Organization Address [facility]/ZIP Co de Phone Number [facility] ([facility]) [address] [place] [address], * HPV HIGH RISK (10/19/2022 2:42 PM TENTERING MACHINE OFF BEARER) TYPE 16 Negative Negative 10/21/2022 2:01 PM TENTERING MACHINE OFF BEARER [facility] TYPE 18 Negative Negative 10/21/2022 2:01 PM TENTERING MACHINE OFF BEARER [facility] OTHER HIGH RISK TYPES Negative Negative 10/21/2022 2:01 PM TENTERING MACHINE OFF BEARER [facility] Other (Cervical) Non-Blood / Unknown 10/19/2022 2:42 PM TENTERING MACHINE OFF BEARER 10/20/2022 8:37 AM TENTERING MACHINE OFF BEARER Narrative [facility] - 10/21/2022 2:01 PM TENTERING MACHINE OFF [employer]ARER HPV types 16, 18, 31, 33, 35, 39, 45, 51, 52, 56, 58, 59, 66 and 68 DNA were undetectable or below the pre-set threshold. Methodology: Juan José Bentley 4800 HPV Test [facility] [address] [place] [address], from Last 3 Months or Most Recently Relevant to Health Maintenance Advance Directives * Full Code (Latest Code Status on File) Date Activated Date Inactivated Comments 02/21/2012 1:47 AM 02/23/2012 4:41 PM * Full Code Date Activated Date Inactivated Comments 02/20/2012 6:47 PM 02/21/2012 1:47 AM Care Teams Escalator Attendant Relationship Specialty Start Date End Date Awa Barajas PA [address] [place] [address] PCP - General Physician Bonderizer 10/29/17 Pawel Guillermo MD [address] [place] [address] Perinatology [employer] Perinatology 09/15/11 [facility] Perinatology [employer] Perinatology 12/07/11
== END 2024-03-25 22:06 | disposition home or self-care (01) ==
LOC: ED 22:03
PROVIDERS: Emergency Provider Internal Medicine; PCP Physician Assistant Medical
DX: S30.860A Insect bite (nonvenomous) of lower back and pelvis, initial encounter (principal); Z20.828 Contact with and (suspected) exposure to other viral communicable diseases
CPT/HCPCS: 99283; A9270